=== PATIENT | male | born 1965 | race Caucasian/White ===

== ENCOUNTER → 2018-08-23 | Outpatient (CLI) | payer OTHER ==
[~2018-08-23] MED LIST: COREG12.5 MG PO; LASIX 20 MG TAB20 MG PO; LISINOPRIL20 MG PO; METFORMIN HCL500 MG PO; PLAVIX 75 MG TA75 M1 PO
--- NOTE | ~2018-08-23 | EKG ---
[address] [place] [address] ELECTROCARDIOGRAM REPORT Name: ALEJANDRO BONILLA I Room #: [facility]#: [id number] Admission: 08/23/18 Attend Phys: Macario Kolb MD Discharge: Date of : 67 Report #: [id number] THIS REPORT FOR: //name// [facility] Test Date: 2018-08-23 Test Time: 06:30:43 Pat Name: ALEJANDRO BONILLA Department: Room: Gender: Emergency Services Dispatcher: DESIRE : 1965 Requested By: Macario Kolb Order Number: [id number] MD: Alejandro Anglin Measurements Intervals [place] Rate: 80 P: 13 NV: 201 QRS: -7 QRSD: 97 T: 87 QT: 405 QTc: 468 Interpretive Statements Sinus rhythm Poor R wave progression No previous ECG available for comparison Electronically Signed On 08-23-2018 9:19:18 CDT by Alejandro Anglin [email or web address] <ELECTRONICALLY SIGNED> By: Alejandro Anglin MD, [facility] 08/23/18 0919 0630 0630 Alejandro Anglin MD, FACC /EPI
== END | disposition home or self-care (01) ==
LOC: LITH 06:10
DX: N20.1 Calculus of ureter (principal); I10 Essential (primary) hypertension; I25.2 Old myocardial infarction; G47.33 Obstructive sleep apnea (adult) (pediatric); E11.9 Type 2 diabetes mellitus without complications; K21.9 Gastro-esophageal reflux disease without esophagitis; Z98.890 Other specified postprocedural states; Z95.1 Presence of aortocoronary bypass graft; Z95.5 Presence of coronary angioplasty implant and graft; Z88.8 Allergy status to other drugs, medicaments and biological substances; Z79.899 Other long term (current) drug therapy